=== PATIENT | female | born 1940 | race Caucasian/White ===

== ENCOUNTER 2021-07-03 06:43 | Day surgery (SDC) | payer MEDICARE, MEDICAID ==
[2021-07-03] VITALS (8 sets, daily range): BP systolic 123–145; BP diastolic 49–71
[~2021-07-03] VITALS: Ht 177.8 cm; Wt 81.2 kg
[2021-07-03] MEDS ORDERED: normal saline 1,000 ML IV SCH (07:00)
[2021-07-03] MEDS ORDERED: diphenhydrAMINE 25mg capsule PO PRN (07:00)
[2021-07-03] MEDS ORDERED: MULT-1085 PO (07:32)
[2021-07-03] MEDS ORDERED: LISI10TA27 PO (07:32)
[2021-07-03] MEDS ORDERED: APIX5TAB3 PO (07:32)
[2021-07-03] MEDS ORDERED: FURO20TA4 PO (07:32)
[2021-07-03 07:37] LABS: BASOPHILS # (AUTO) 0.1 X10'3 (0-0.2); EOSINOPHILS # (AUTO) 0.1 X10'3 (0-0.9); EOSINOPHILS % (AUTO) 1.9 % (0-6); HEMATOCRIT 40.4 % (35.0-45.0); HEMOGLOBIN 13.7 g/dl (12.0-16.0); LYMPHOCYTES # (AUTO) 1.5 X10'3 (1.1-4.8); LYMPHOCYTES % (AUTO) 29.7 % (21-51); MEAN CORPUSCULAR HEMOGLOBIN 32.3 PG (27.0-31.0); MEAN CORPUSCULAR HGB CONC 33.8 g/dL (33.0-36.5); MEAN CORPUSCULAR VOLUME 95.3 FL (78-98); MEAN PLATELET VOLUME 8.7 FL (7.4-10.4); MONOCYTES # (AUTO) 0.4 X10'3 (0-0.9); MONOCYTES % (AUTO) 8.1 % (2-12); NEUTROPHILS % (AUTO) 59.3 % (42-75); PLATELET COUNT 222 X10'3 (140-440); RED BLOOD COUNT 4.24 X10'6 (4.20-5.60); RED CELL DISTRIBUTION WIDTH 12.8 % (11.5-14.5); WHITE BLOOD COUNT 5.1 X10'3 (4.5-11.0)
[2021-07-03 07:47] LABS: ALBUMIN 3.9 G/DL (3.4-5.0); ANION GAP 11 (8-16); BLOOD UREA NITROGEN 10 MG/DL (7-18); BUN/CREATININE RATIO 13.3 (6.6-38.0); CALCIUM 9.7 MG/DL (8.5-10.1); CHLORIDE 107 MMOL/L (99-107); CREATININE 0.75 MG/DL (0.40-0.90); GLUCOSE 97 MG/DL (70-104); MAGNESIUM 2.2 MG/DL (1.5-2.4); POTASSIUM 3.7 MMOL/L (3.5-5.1); SODIUM 142 MMOL/L (135-145); TOTAL CARBON DIOXIDE 24.2 MMOL/L (24-32); eGFR 74 ML/MIN
[2021-07-03] MEDS ORDERED: fentaNYL/PF 50MCG/1 ML 2ML syringe ONE (08:51)
[2021-07-03] MEDS ORDERED: verapamil 2.5 mg/ml inj IV ONE (08:51)
[2021-07-03] MEDS ORDERED: nitroGLYCERIN-Tridil 50MG/D5W 250 ML IV ONE (08:51)
[2021-07-03] MEDS ORDERED: heparin 1,000unit/ml 10ml vial 10 ML ONE (08:52)
[2021-07-03] MEDS ORDERED: iohexol 350 MG/ML 50ML vial IV ONE (08:52)
[2021-07-03] MEDS ORDERED: iohexol 350MG/ML 100ml bottle IV ONE (08:52)
[2021-07-03] MEDS ORDERED: LIDOcaine 1% (10mg/ml)w/preservative injection 20ml MDV ONE (08:52)
[2021-07-03] MEDS ORDERED: midazolam 1 mg/ML 2ml injection ONE (08:52)
[2021-07-03] MEDS ORDERED: HYDROcodone/acetaminophen 5mg/325mg tablet PO PRN (10:30)
[2021-07-03] MEDS ORDERED: HYDROcodone/acetaminophen 10/325mg tab PO PRN (10:30)
[2021-07-03] MEDS ORDERED: normal saline 1000ml 1,000 ML IV SCH (10:30)
[2021-07-03] MEDS ORDERED: proCHLORperazine 10 MG/2 ml inj IV PRN (10:30)
[2021-07-03] MEDS ORDERED: ondansetron/PF 4mg/2ml inj IV PRN (10:30)
== END 2021-07-03 13:30 | disposition home or self-care (01) ==
LOC: SSTAY O 06:43
PROVIDERS: ATTEND Internal Medicine Cardiovascular Disease
DX: R06.02 Shortness of breath (principal); I42.0 Dilated cardiomyopathy; I48.0 Paroxysmal atrial fibrillation; Z87.891 Personal history of nicotine dependence
CPT/HCPCS: 36415; 80048; 83735; 85025; 85610; 93005; 93458; 99152; 99153; C1769; C1894; J1644; J2250; J3010; J3490; J7030; Q0163; Q9967; A4620; A6258

== ENCOUNTER 2023-09-30 08:04 | Emergency (ER) | payer MEDICARE, MEDICAID ==
[~2023-09-30] VITALS: Ht 177.8 cm; Wt 77.2 kg
[~2023-09-30 08:04] MED LIST: APIX5TAB3 PO; FURO20TA4 PO; LISI10TA27 PO; MULT-1085 PO
[2023-09-30 09:36] LABS: BASOPHILS % (AUTO) 0.8 % (0-1); EOSINOPHILS # (AUTO) 0.1 X10'3 (0-0.9); EOSINOPHILS % (AUTO) 1.2 % (0-6); HEMATOCRIT 42.6 % (35.0-45.0); HEMOGLOBIN 14.3 g/dl (12.0-16.0); LYMPHOCYTES # (AUTO) 1.1 X10'3 (1.1-4.8); LYMPHOCYTES % (AUTO) 16.7 % (21-51); MEAN CORPUSCULAR HEMOGLOBIN 32.9 PG (27.0-31.0); MEAN CORPUSCULAR HGB CONC 33.6 g/dL (33.0-36.5); MEAN PLATELET VOLUME 9.2 FL (7.4-10.4); MONOCYTES # (AUTO) 0.5 X10'3 (0-0.9); MONOCYTES % (AUTO) 8.3 % (2-12); NEUTROPHILS # (AUTO) 4.6 X10'3 (1.8-7.7); PLATELET COUNT 177 X10'3 (140-440); RED BLOOD COUNT 4.34 X10'6 (4.20-5.60); RED CELL DISTRIBUTION WIDTH 12.8 % (11.5-14.5); WHITE BLOOD COUNT 6.4 X10'3 (4.5-11.0)
[2023-09-30 10:09] LABS: ALANINE AMINOTRANSFERASE 25 U/L (12-78); ALBUMIN 3.3 G/DL (3.4-5.0); ALKALINE PHOSPHATASE 87 IU/L (46-116); ANION GAP 8 (8-16); ASPARTATE AMINO TRANSFERASE 20 U/L (10-37); BILIRUBIN,TOTAL 0.4 MG/DL (0.1-1.0); BLOOD UREA NITROGEN 9 MG/DL (7-18); BUN/CREATININE RATIO 12.7 (10.0-20.0); CALCIUM 9.2 MG/DL (8.5-10.1); CHLORIDE 103 MMOL/L (99-107); CREATININE 0.71 MG/DL (0.40-0.90); GLUCOSE 112 MG/DL (70-104); LIPASE 42 U/L (16-77); POTASSIUM 3.7 MMOL/L (3.5-5.1); SODIUM 138 MMOL/L (135-145); TOTAL CARBON DIOXIDE 26.6 MMOL/L (24-32); TOTAL PROTEIN 6.7 G/DL (6.4-8.2); eCRCL 64 ML/MIN; eGFR 78 ML/MIN
[2023-09-30] MEDS ORDERED: SULF1TAB49 PO (12:00)
[2023-09-30 12:11] VITALS: BP 162/68; PULSE 60; RESP 16; TEMP 97.7; O2SAT 98
== END 2023-09-30 12:14 | disposition home or self-care (01) ==
LOC: ER 08:05
DX: R19.7 Diarrhea, unspecified (principal); Z79.899 Other long term (current) drug therapy; Z79.2 Long term (current) use of antibiotics
CPT/HCPCS: 36415; 80053; 83690; 85025; 99284

== ENCOUNTER 2025-04-26 08:54 | Outpatient (CLI) | payer MEDICARE, MEDICAID ==
[~2025-04-26 08:54] MED LIST changes: +CARV6.2555 PO; +FURO-150 PO; -FURO20TA4 PO; +LEVO750T68 PO; -MULT-1085 PO
[2025-04-26] MEDS ORDERED: iohexol 300mg/ml 100ml inj. ONE (09:16)
--- NOTE | 2025-04-26 12:05 | RADIOLOGY REPORT ---
Exam: CT CT ABDOMEN W/ IV CONTRAST History: EPIGASTRIC PAIN. Comparison Study: None Contrast: Type of contrast: Omnipaque 300 Contrast injected: 100 mL Contrast wasted: 0 TECHNIQUE: CT scan of the abdomen was performed with intravenous contrast. Coronal and sagittal reformatted images are provided. Radiation Dose Information: CT Dose: CTDI volume is 13.6 mGy. Dose-length product is 436.3 mGy*cm FINDINGS: Lung Bases: No acute or significant lung base finding. Normal heart size. No pleural or pericardial effusion. Liver: The liver is normal in size. No focal lesions. Normal hepatic vascular enhancement. Gallbladder and Biliary Tree: Gallbladder is distended with multiple gallstones. There is pericholecystic fat stranding and fluid. Mild intrahepatic biliary ductal dilatation is noted. Common bile duct is dilated measuring 8 mm and contains small dense foci. Spleen: Unremarkable Pancreas: The pancreas is normal in appearance without focal lesions or abnormal enhancement. Adrenal Glands: Unremarkable Kidneys: Kidneys demonstrate normal symmetric enhancement without focal lesions, calculi or hydronephrosis. Bowel: The stomach is grossly normal in appearance. Small bowel normal in caliber. There stool in the visualized colon. The appendix is not visualized; however, may be outside of the field of view. Ascites: Absent Lymphadenopathy: No mesenteric, retroperitoneal or periportal lymphadenopathy. Abdominal Wall and Mesentery: Unremarkable. Vasculature: The visualized abdominal aorta is normal in size and caliber. Abdominal and pelvic vessels demonstrate normal enhancement. Musculoskeletal: No aggressive focal bony lesions, acute fractures or dislocation. Soft tissues: Unremarkable. IMPRESSION: 1. Cholelithiasis with gallbladder distention, pericholecystic fat stranding and fluid. Findings are concerning for acute cholecystitis. 2. Mild intrahepatic and extrahepatic biliary ductal dilatation with small dense foci in the common bile duct concerning for choledocholithiasis. MRCP may be obtained for further evaluation.
== END 2025-04-26 23:59 | disposition home or self-care (01) ==
LOC: RAD 08:54
PROVIDERS: ATTEND Student in an Organized Health Care Education/Training Program
DX: K80.70 Calculus of gallbladder and bile duct without cholecystitis without obstruction (principal); K82.8 Other specified diseases of gallbladder; K83.8 Other specified diseases of biliary tract; R10.13 Epigastric pain
CPT/HCPCS: 74160; Q9967

== ENCOUNTER 2025-04-30 09:29 | Emergency (ER) | payer MEDICARE, MEDICAID ==
[~2025-04-30] VITALS: Ht 175.3 cm; Wt 68.9 kg
[2025-04-30 09:37] VITALS: BP 161/98; PULSE 68; RESP 18; O2SAT 99
--- NOTE | 2025-04-30 09:44 | Physician Documentation ---
History of Present Illness Chief Complaint: Abdominal Pain Stated Complaint: GALL STONES Time Seen by MD: 09:43 Primary Medical Doctor: DR. MCCALLUM HPI 84-year-old female presents to the ED after receiving notice via the outpatient setting the her CT indicates a likely infected and blocked gallstone. 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 Medication Reconciliation Allergies: Coded Allergies: No Known Allergies (Unverified , 04/30/25) Scheduled Apixaban (Eliquis), 1 TAB PO BID, (Reported) Furosemide (Lasix), 20 MG PO DAILY Levofloxacin (Levofloxacin), 750 MG PO DAILY@11 Lisinopril (Lisinopril), 1 TAB PO DAILY, (Reported) Miscellaneous Medications Carvedilol (Carvedilol), 6.25 MG PO, (Reported) Past Medical History Past Medical History: *GI/HEPATOBILIARY* Past Surgical History: noncontributory Patient History: FH: CAD (coronary artery disease) FATHER, , Age: 75, Cause: CAD (coronary artery disease) Alcohol Use: None Drug Use: none Lives with: Family Lives In: Home Physical Exam Vital Signs: Temperature: 97.8, Source: Oral, Heart Rate: 68, Respiratory Rate: 18, BP: 161/98, Pulse Oximetry: 99, Weight: 68.900 Oxygen Flow Rate: 0 Physical Exam General: Alert, no apparent distress. Gastrointestinal: Soft, nontender, nondistended. Bowels sounds present. RUQ tenderness Neurologic: Oriented x4. Psychiatric: Normal mood and affect. Skin: Normal color, warm and dry. No edema, no ecchymosis. Progress Results/Orders Results/Orders Vital Signs 04/30/25 09:37 Temp 97.8 Pulse 68 Resp 18 B/P (MAP) 161/98 Pulse Ox 99 O2 Flow Rate 0 Medical Decision Making Additional information obtaine: old records Findings pt eloped from lobby Differential Dx:Considerations: Bowel obstruction, Cholangitis, Cholelithasis Departure Disposition: LEFT AWOL/ELOPED Impression: Primary Impression: Abdominal pain Referrals: NO PRIMARY CARE PROVIDER (PCP) Signature Scribe Signature: i Attestation: Scribed for Smith Mccallum Concrete Mixer Truck Driver by Smith Oliva NP . 04/30/25 09:46 SMITH MCCALLUM NP Apr 30, 2025 09:44
[2025-04-30 09:57] VITALS: TEMP 97.8
== END 2025-04-30 10:01 | disposition left against medical advice (07) ==
LOC: ER 09:29
DX: R10.9 Unspecified abdominal pain (principal); Z79.899 Other long term (current) drug therapy
CPT/HCPCS: 99282

== ENCOUNTER 2025-06-12 10:32 | Day surgery (SDC) | payer MEDICARE, MEDICAID ==
[~2025-06-12] VITALS: Ht 175.3 cm; Wt 67.0 kg
[2025-06-12] VITALS (8 sets, daily range): BP systolic 134–147; BP diastolic 67–82; PULSE 58–76; RESP 13–15; TEMP 97.8; O2SAT 95–100
[2025-06-12] MEDS ORDERED: fentaNYL/PF 50MCG/1 ML 2ML syringe ONE (11:45)
[2025-06-12] MEDS ORDERED: MIDAZolam 1 MG/ML 5ML VIAL ONE (11:46)
--- NOTE | 2025-06-13 10:39 | PATHOLOGY REPORT ---
[facility] [address] [place] [address] SURGICAL PATHOLOGY REPORT CaseNumber: [id number] Surgeon:Shan Grewal M.D. CLINICAL INFORMATION CLINICAL INFORMATION: Colonoscopy, diarrhea. DIAGNOSIS DIAGNOSIS: COLON, RANDOM BIOPSIES X 2 - OCCASIONAL SMALL BENIGN LYMPHOID AGGREGATES - NO SIGNIFICANT INFLAMMATION OR LYMPHOCYTIC COLITIS - NO INCREASED SUBMUCOSAL COLLAGEN DEPOSITION - NO INFECTIOUS ELEMENTS ARE IDENTIFIED - NO DYSPLASTIC OR NEOPLASTIC FEATURES MICROSCOPIC DESCRIPTION MICROSCOPIC DESCRIPTION: Reviewed is a single H&E-stained slide showing sections on levels of two bisected fragments of colonic mucosa. There are occasional small benign lymphoid aggregates. However, there is no significant inflammation or features of lymphocytic colitis. There is no increased submucosal collagen deposition. No infectious elements are identified. There are no dysplastic or neoplastic features. GROSS DESCRIPTION GROSS DESCRIPTION: Received in a container of formalin labeled with the patient's name, number, and "random colon BX" are 2 pieces of hightower tissue 0.7 x 0.2 x 0.1 and 1 x 0.2 x 0.1 cm. The specimen is entirely submitted as A1. The time at which the specimen was removed was 121. The time at which the specimen was placed in formalin was 121. Electronically signed by: rBuno Bonds M.D. 06/13/2025 10:07:00 AM
== END 2025-06-12 13:18 | disposition home or self-care (01) ==
LOC: OR 10:32
PROVIDERS: ATTEND Internal Medicine Gastroenterology
DX: K52.9 Noninfective gastroenteritis and colitis, unspecified (principal); K64.9 Unspecified hemorrhoids; I48.0 Paroxysmal atrial fibrillation; I50.9 Heart failure, unspecified; M06.9 Rheumatoid arthritis, unspecified; Z79.01 Long term (current) use of anticoagulants; Z79.899 Other long term (current) drug therapy; Z90.89 Acquired absence of other organs; Z90.710 Acquired absence of both cervix and uterus
CPT/HCPCS: 45380; 99153; A4620; G0500; J2250; J3010; Z7512; Z7610; 99152